=== PATIENT | male | born 1965 | race African-American/Black ===

== ENCOUNTER 2018-10-16 23:19 | Emergency (ER) | payer MEDICAID ==
[~2018-10-16] VITALS: Ht 172.7 cm; Wt 68.2 kg
[2018-10-16 23:24] VITALS: BP 125/71; Ht 172.7 cm; Wt 68.2 kg
[2018-10-17] MEDS ORDERED: ATIVAN1 MG PO (02:31)
== END 2018-10-17 02:57 | disposition home or self-care (01) ==
LOC: D.ER 23:19
DX: R20.2 Paresthesia of skin (principal)